=== PATIENT | female | born 1980 | race Caucasian/White ===

== ENCOUNTER → 2020-05-20 09:48 | Outpatient (CLI) | payer OTHER, SELFPAY ==
--- NOTE | ~2020-05-20 | CT_ITS ---
EXAMINATION: CT sinus wo con EXAM DATE: 05/20/2020 10:07 INDICATION: Chronic sinusitis. Phantom smells. TECHNIQUE: Spiral CT of the sinuses was acquired in the axial plane. Coronal and sagittal reformatte d images were also reviewed. The dose-length product (DLP) for this examination was 274.70 mGy-cm. Iterative reconstruction (ASIR) was used as dose reduction technique. There is no prior study for co mparison. FINDINGS: The sinuses are normally developed. Small mucous retention cyst inferior aspect of the l eft maxillary sinus. The ostiomeatal units are patent. There is no sinus wall thickening. There is mild to moderate S-shaped nasal septal deviation. The mastoid air cells and middle ears are well aerated. External auditory canals are patent. The orbits and visualized soft tissues are unremark able. IMPRESSION: 1. Small left maxillary sinus mucous retention cyst. 2. Mild to moderate nasal septal deviation. Reviewed, dictated and finalized at location A.
== END ==
PROVIDERS: Visit Provider Otolaryngology
DX: J32.9 Chronic sinusitis, unspecified (principal); J34.2 Deviated nasal septum
CPT/HCPCS: 70486

== ENCOUNTER → 2021-11-03 08:52 | Outpatient (CLI) | payer OTHER, SELFPAY ==
--- NOTE | ~2021-11-03 | US_ITS ---
EXAMINATION: US pelvic complete w TV DATE: 11/03/2021 09:18 INDICATION: Irregular menstruation Comparison:11/23/2016 TECHNIQUE: Multiple transabdominal and endovaginal sonographic images of the pelvis performed. FINDINGS: The uterus measures 9.4 x 3.5 x 4.9 cm. The endometrial complex measures 3 mm. The right ovary measures 3.2 x 2.3 x 2.3 cm and the left ovary measures 2.4 x 1.1 x 2.1 cm. There is a 1.9 cm right ovarian cyst. There are small follicles in each ovary. Normal doppler signal in both o varies. There is no free fluid in the pelvis. There are no abnormal masses seen on either side. IMPRESSION: 1. Right ovarian cyst measuring 1.9 cm. Reviewed, dictated and finalized at location B.
== END ==
PROVIDERS: PCP Student in an Organized Health Care Education/Training Program; Visit Provider Student in an Organized Health Care Education/Training Program
DX: N92.6 Irregular menstruation, unspecified (principal); N83.201 Unspecified ovarian cyst, right side
CPT/HCPCS: 76830; 76856

== ENCOUNTER 2021-12-14 09:34 | Emergency (ER) | payer OTHER, SELFPAY ==
[2021-12-14 09:38] VITALS: BP 134/78; PULSE 102; RESP 16; TEMP 39.1; O2SAT 100
--- NOTE | 2021-12-14 09:53 | ED.URI ---
HPI - URI/Sore Throat General Chief Complaint: Upper Respiratory Infection Stated Complaint: headache, sinus drainage, cough Time Seen by Provider: 12/14/21 09:45 Source: patient Mode of arrival: ambulatory Limitations: no limitations History of Present Illness HPI Narrative: Ms. Eagle is a 41-year-old female patient presenting to clinic today with complaints of headache, sinus drainage, cough, and fever. Fever is 39.1? C in the clinic today. She reports that the symptoms developed yesterday. States that she had somebody in the office that tested positive for COVID 2 weeks ago. She reports that she has been having symptoms off and on for approximately 2 weeks however the fever just began yesterday. MD elicited complaint: sore throat and nasal congestion Related Data Allergies Allergy/AdvReac Type Severity Reaction Status Date / Time No Known Allergies Allergy Verified 08/10/21 11:02 Review of Systems Review of Systems: Pertinent positives per HPI. Patient denies any fever, chills, rash, visual changes, dizziness, shortness of breath, chest pain, palpitations, nausea, vomiting, diarrhea, constipation, abdominal pain, or any urinary issues. PMFSH Past Medical History Medical History Chicken pox Endometriosis HPV test positive Patent pressure equalization (PE) tube Surgical History Surgical History History of unilateral salpingectomy Family History Family History Father Patient's father is in good health Grandparent Hypertension Social History Social History Smoking status: Never smoker Alcohol intake: current Comments At the time of my signature, I reviewed and agree with the nursing past medical, surgical, social, and family history. There is no relevant family history pertinent to the patient complaint. Exam Narrative: General: Well-developed, well nourished, in no apparent distress Head: Normocephalic, atraumatic Eyes: Pupils equally round and reactive to light bilaterally, EOM intact, sclera and conjunctive clear, no discharge, lids normal Ears: TMs intact and clear, ear canals clear, no drainage, grossly hearing normal. Nose: Nares patent, clear nasal discharge, no inflammation, no sinus tenderness. Mouth: Oral pharynx without lesions or masses, good dentition, MMM. Postnasal drip Neck: Supple, trachea midline, no enlargement of anterior or posterior cervical nodes, no thyroid masses or goiter palpable. Cardio: Regular rate and rhythm, s1 and s2 normal, no murmur appreciated. Resp: Clear to auscultation bilaterally, no rhonchi, rales, wheezing or rubs Course Course Emergency Course: Portions of this record may have been created with voice recognition software. Level of Care: Express Care Visit Vital Signs Vital signs: Vital Signs Temperature 39.1 C H 12/14/21 09:38 Pulse Rate 102 H 12/14/21 09:38 Respiratory Rate 16 12/14/21 09:38 Blood Pressure 134/78 12/14/21 09:38 Pulse Oximetry 100 12/14/21 09:38 Oxygen Delivery Room Air 12/14/21 09:38 Temperature 39.1 C H 12/14/21 09:38 Pulse Rate 102 H 12/14/21 09:38 Respiratory Rate 16 12/14/21 09:38 Blood Pressure 134/78 12/14/21 09:38 Pulse Oximetry 100 12/14/21 09:38 Oxygen Delivery Room Air 12/14/21 09:38 Vital signs reviewed MDM - URI/Sore Throat MDM Narrative Medical decision making narrative: At the time of visit patient is resting comfortably on the exam table. COVID and influenza testing was completed influenza A was positive. COVID testing was negative. Will place patient on a prescription for some Tamiflu. Supportive measures were discussed with the patient she voiced understanding of discharge instructions and agrees to treatment plan. Dif
== END 2021-12-14 10:23 | disposition home or self-care (01) ==
PROVIDERS: Emergency Provider Nurse Practitioner Family; PCP Internal Medicine
DX: J10.1 Influenza due to other identified influenza virus with other respiratory manifestations (principal); Z20.822 Contact with and (suspected) exposure to COVID-19; N80.9 Endometriosis, unspecified
CPT/HCPCS: 87426; 87804; 99213; C9803; G0463

== ENCOUNTER 2022-07-28 01:22 | Day surgery (SDC) | payer OTHER, SELFPAY ==
[2022-07-21 12:47] VITALS: BMI 22.3
--- NOTE | 2022-07-21 13:00 | PC.NURSE ---
Report to the Outpatient Waiting Room, entrance under the green pavilion located off [facility], at time _1100 on date 07/28/22_. Planned Procedure Time: 1300. Time changes happen often and if your time is changed the preop area will call you the afternoon before. - You and your visitor will be asked to self-screen and do not enter if you have any COVID symptoms. - A mask is optional within the hospital at this time. Patients may have clear liquids (water, carbonated beverages, clear teas, apple juice) until 3 hours prior to surgery with a maximum of 20 ounces. - No food from midnight until time of surgery - Infants may have breast milk until 4 hours before surgery, formula 6 hours prior to surgery. - Children will be allowed to drink immediately following surgery. If applicable, please bring a bottle or sippy cup to assist with drinking. Juice, water, soda, and popsicles are readily available. For infants on formula, please bring formula the day of surgery. Pacifiers are allowed. Take the following medications with a SIP of water the morning of surgery: _n/a DO NOT STOP ANY OF YOUR OTHER PRESCRIPTION MEDICATIONS PRIOR TO SURGERY ?EXCEPT THE FOLLOWING Medications to discontinue per physician _n/a Date to take last dose Please no make-up, nail russian, hairspray, perfume, deodorant, or body powder the day of surgery. No jewelry (including any body piercings) or valuables the day of surgery, leave them at home. Please take a shower or bath the night before, or the morning of, surgery with an antibacterial soap. Wear comfortable, loose fitting clothing. Children are encouraged to wear pajamas. - Jewelry must be removed prior to entering the operating room. Rings and piercings that are not removed may be cut off. - The hospital will not accept responsibility for valuables. - Please leave all valuables, including medications, at home the day of surgery. If you are going home after surgery, a licensed sprinkler driver must drive you home. - NO public transportation without another adult if you receive anesthesia. - We recommend that an adult stay with you for 24 hours following discharge. - We also recommend that you do not drive, make important decision, drink alcoholic beverages, or take any drugs that were not prescribed by your health care provider for at least 24 hours after your discharge time. For Pediatric surgeries, we recommend two adults accompany the child home. Follow any additional instructions given to you from your surgeon. If you or anyone in your household have experienced Covid symptoms in the past week, please notify your surgeon or the nurse liaison at the phone number below for possible testing. Telephone instructions given to Catherine Rivera and asked if any additional questions and then verbalized understanding. Patient advised to call surgeon office or pre surgery nurse liaison [phone] if any additional questions.
--- NOTE | 2022-07-28 10:54 | PM.IMHP ---
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 She has been informed of risk of procedure benefits of procedure and risk of not removing the precancer cells. And she has agreed to the LEEP procedure. Review of Systems Review of Systems: All systems reviewed & are unremarkable except as noted in HPI and below Constitutional: Constitutional: Reports no additional constitutional complaints Eyes: Eyes: Reports no additional eye complaints Cardiovascular: Cardiovascular: Reports no additional cardiovascular complaints Respiratory: Respiratory: Reports no additional respiratory complaints Gastrointestinal: Gastrointestinal: Reports no additional gastrointestinal complaints Genitourinary: Genitourinary: Reports no additional female genitourinary complaints and Reports as per HPI Integumentary/Breasts: Skin/Breast: Reports system reviewed and no additional complaints, except as docu Neurologic: Reports system reviewed and no additional complaints, except as documented Psychiatric: Psychiatric: Reports no additional psychiatric complaints Hematologic/Lymphatic: Hematologic/Lymphatic: Reports no additional hematologic/lymphatic complaints [facility] Past Medical History Medical History Chicken pox Endometriosis HPV test positive Patent pressure equalization (PE) tube Surgical History Surgical History History of unilateral salpingectomy Family History Family History Father Patient's father is in good health Grandparent Hypertension Social History Social History Smoking status: Never smoker Alcohol intake: current Substance use: never Lack of Transportation: No Lack of Food: Sometimes True Current Housing: I Have Housing Concerned About Future Housing: No Difficulty Paying Gas/Electric Bills: No Difficulty Paying for Meds: No Currently Unemployed: No Education: Bachelor's Degree Difficulty w/ Childcare or Family Care: No Living arrangements: with family Occupation/Education: occupation Gender identity (if verbalized by the patient): Female Sexual Orientation (if Verbalized by the Patient): Straight or Heterosexual Spiritual care concerns: No Agree to blood products: Yes Meds Home Medications and Allergies Home Medications Medication Instructions Recorded Confirmed Type No Home Medications 07/21/22 07/21/22 History Allergies Allergy/AdvReac Type Severity Reaction Status Date / Time No Known Allergies Allergy Verified 07/07/22 14:59 Exam Const: General: comfortable and no acute distress Orientation/consciousness: oriented to person, oriented to place and oriented to time Eyes: General: appearance normal, both eyes and all related structures Neck: Neck: normal visual inspection Resp: Effort & Inspection: normal respiratory effort Auscultation: clear to auscultation bilaterally Cardio: Rate: regular rate Rhythm: regular rhythm GI: Inspection: normal to inspection GI Palp: No abdominal tenderness and Yes No hepatosplenomegaly present : External Female Exam: normal external appearance Speculum Exam - Vagina: normal appearance of the vagina Speculum Exam - Cervix: normal appearance of the cervix Bimanual exam- vagina & uterus: normal bimanual exam, uterine mobility normal, uterine shape normal and non-tender Bimanual Exam- Adnexa, other: no masses and No adnexal tenderness Skin: General skin exam: normal color Neuro: General: oriented to person, orient
[2022-07-28] MEDS: ACETAMINOPHEN 500 MG TABLET 1000 MG PO (11:14)
--- NOTE | 2022-07-28 11:29 | WPDHPUPDATE1 ---
History and Physical Update Update Date/Time: 07/28/22 11:29 History and Physical has been reviewed, including an updated exam of the patient. There are NO changes in the patient's condition. Risks, benefits, and alternatives have been discussed and questions answered. Patient agrees to proceed with procedure.
[2022-07-28] MEDS: LACTATED RINGERS 1,000 ML 30 ML IV CONT (11:41)
[2022-07-28 11:43] VITALS: BP 131/75; PULSE 71; RESP 16; TEMP 36.8; O2SAT 100
--- NOTE | 2022-07-28 12:11 | P.PNAN_ITS ---
Anes - Initial Pre Proc Eval Procedure: Operation Date: 07/28/22 13:00 Proposed Procedures p Loop Electrical Excision Procedure - Blair Javier MD Date/Time: 07/28/22 12:11 Surgeon: Blair Javier MD Pre Op Diagnosis: hsil Patient Data Age: 41 Gender: F Height: 1.63 m Weight: 59 kg Last Vital Signs Temp 36.8 C 07/28/22 11:43 Pulse 71 07/28/22 11:43 Resp 16 07/28/22 11:43 BP 131/75 07/28/22 11:43 Pulse Ox 100 07/28/22 11:43 O2 Del Method Room Air 07/28/22 11:43 Allergies Allergy/AdvReac Type Severity Reaction Status Date / Time No Known Allergies Allergy Verified 07/28/22 11:10 Home Medications Medication Instructions Recorded Confirmed Type No Home Medications 07/21/22 07/21/22 History Patient hx anesthesia problems: none Family hx anesthesia problems: none Results Review: All pre-operative results and documents have been reviewed as part of the pre- operative evaluation. [facility] Past Medical History Medical History Chicken pox Endometriosis HPV test positive Patent pressure equalization (PE) tube Surgical History Surgical History History of unilateral salpingectomy Family History Family History Father Patient's father is in good health Grandparent Hypertension Social History Social History Smoking status: Never smoker Alcohol intake: current Substance use: never Lack of Transportation: No Lack of Food: Sometimes True Current Housing: I Have Housing Concerned About Future Housing: No Difficulty Paying Gas/Electric Bills: No Difficulty Paying for Meds: No Currently Unemployed: No Education: Bachelor's Degree Difficulty w/ Childcare or Family Care: No Living arrangements: with family Occupation/Education: occupation Gender identity (if verbalized by the patient): Female Sexual Orientation (if Verbalized by the Patient): Straight or Heterosexual Spiritual care concerns: No Agree to blood products: Yes Anes - Eval Final PreProcedure Day of Procedure 07/28/22 12:11 Patient weight: normal Heart: regular rate and rhythm Lungs: clear to auscultation Airway: Mallampati scale class II Neurological: alert and oriented Last oral intake: >/= 8 hours ASA classification: II Emergent: no Anesthetic plan: proceed Anesthesia type and monitoring: general GIVS and standard monitoring Results Review: All pre-operative results and documents have been reviewed as part of the pre- operative evaluation. Informed Consent: The patient's anesthetic plan and its attendant risks and benefits were discussed with the patient/family/POA. Questions were solicited and answers provided to the satisfaction of the patient/family/POA.
[2022-07-28] MEDS: ceFAZolin 2 GM/D5W 50 ML 2 GM/50 ML BAG IVPB (13:10)
[2022-07-28 13:16] VITALS: BP 92/53; PULSE 68; RESP 16; O2SAT 99
[2022-07-28] MEDS: IODINE/POTASSIUM IODIDE 8 ML SOLUTION TOPICAL (13:21)
[2022-07-28] MEDS: FERRIC SUBSULFATE 8 ML SOLUTION WITH APPLICATOR TOPICAL (13:23)
--- NOTE | 2022-07-28 13:24 | W.PM.PROC2 ---
Procedure Note - Detailed Date of Procedure 07/28/22 Pre-op Diagnosis hsil Post-op Diagnosis Same Procedure Performed Loop electrosurgical excision procedure Surgeon Blair Javier MD Anesthesia MAC and Local Indications KEVON 2-3 Findings Hypopigmentation with Lugol's on the cervix from 7-1 position Description of Procedure The patient was taken to the OR where adequate IV sedation was administered. She was then prepped and draped in the usual sterile fashion and placed in the dorsal lithotomy position. A Graves speculum was placed in the vagina. Lugol?s solution was painted along the entire cervix and vaginal wall. Areas of non-uptake were noted to be around the entire squamocolumnar junction. 10 cc of lidocaine with epinephrine was injected at surgical site. The large loop electrode was used to remove the anterior or top portion of the cervix and a separate posterior specimen which included all of the hypopigmented area was excised and sent to pathology. The smallest loop electrode was used to obtain an endocervical specimen. The bed of the excised cervical tissue along the cervix was cauterized using the roller ball. Monsels was applied. Hemostasis was noted. All instruments were removed from vagina at this point. The patient tolerated the procedure well without complication and was taken to the recovery room in stable condition. Estimated Blood Loss 5 Drains No Packing No Pathology Yes (1.Anterior ectocervix 2. Post ectocervix 3. Endocervix ) Complications No immediate complications Condition Stable Disposition Observation [facility] Billing Surgery - Charge Forward: Surgery Billing
[2022-07-28 13:50] VITALS: BP 103/66; PULSE 56; RESP 14; O2SAT 100
[2022-07-28 14:00] VITALS: BP 104/64; PULSE 62; RESP 15; O2SAT 100
[2022-07-28 14:15] VITALS: BP 122/65; PULSE 57; RESP 17; O2SAT 100
== END 2022-07-28 14:21 | disposition home or self-care (01) ==
PROVIDERS: PCP Internal Medicine; Visit Provider Obstetrics & Gynecology
PROC: 0UBC7ZZ Excision of Cervix, Via Natural or Artificial Opening (ICD-10-PCS; CPT 57522; principal; 2022-07-28 13:00)
DX: N87.1 Moderate cervical dysplasia (principal); R87.810 Cervical high risk human papillomavirus (HPV) DNA test positive
CPT/HCPCS: 57522; 88307; 88342; A9270; J0690; J2250; J2704; J3010; J7120